=== PATIENT | male | born 1985 | race Caucasian/White ===

== ENCOUNTER → 2017-02-16 | Outpatient (CLI) | payer BC | LOC: COL.RAD 08:20 | DX: K21.9 Gastro-esophageal reflux disease without esophagitis (principal) ==

== ENCOUNTER 2021-08-05 07:34 | Day surgery (SDC) | payer BC ==
[~2021-08-05] VITALS: Ht 188 cm; Wt 92.6 kg
[2021-08-05] MEDS ORDERED: PRIL40 PO (07:51)
[2021-08-05] MEDS ORDERED: ZOLOFT 100MG100 MG PO (07:51)
[2021-08-05] MEDS ORDERED: VENTOLIN0.09 MG IH (07:51)
[2021-08-05 08:35] VITALS: BP 137/93; PULSE 84; TEMP 98.3
[2021-08-05 09:40] VITALS: BP 116/76; PULSE 75
--- NOTE | 2021-08-05 09:40 | NUR ---
Patient returns to [facility] [address] per cart and transfers to recliner. IV fluids infusing and patient denies nausea or difficulty swallowing. Drinking water. Call light in reach. Family at side.
[2021-08-05 09:55] VITALS: BP 116/82; PULSE 68
--- NOTE | 2021-08-05 09:55 | NUR ---
Dr. Lord in the room and talks with the patient. All questions answered.
[2021-08-05 10:10] VITALS: BP 118/91; PULSE 61
--- NOTE | 2021-08-05 10:10 | NUR ---
IV discontinued and site is free of redness or swelling. Patient dresses self.
--- NOTE | 2021-08-05 10:13 | NUR ---
Dismissal instructions given and voices understanding of these.
--- NOTE | 2021-08-05 10:15 | NUR ---
Dismissed to home driven by family member and taken to the front door per wheelchair and assisted into vehicle with dismissal instructions in hand.
== END 2021-08-05 10:15 | disposition home or self-care (01) ==
LOC: SDCO 07:34
DX: K22.2 Esophageal obstruction (principal); K21.00 Gastro-esophageal reflux disease with esophagitis, without bleeding; K29.50 Unspecified chronic gastritis without bleeding; K29.80 Duodenitis without bleeding; J45.909 Unspecified asthma, uncomplicated; F41.9 Anxiety disorder, unspecified; F32.A Depression, unspecified; Z79.899 Other long term (current) drug therapy
CPT/HCPCS: C1726; J2704; J3010; J7030

== ENCOUNTER 2022-09-22 06:10 | Day surgery (SDC) | payer BC ==
[~2022-09-22] VITALS: Ht 188 cm; Wt 92.2 kg
[~2022-09-22 06:10] MED LIST: PRIL40 PO; VENTOLIN0.09 MG IH; ZOLOFT 100MG100 MG PO
[2022-09-22 07:05] VITALS: BP 146/95; PULSE 85; TEMP 97.8
[2022-09-22 08:06] VITALS: BP 116/78; PULSE 81; TEMP 97.5
--- NOTE | 2022-09-22 08:06 | NUR ---
PATIENT AMBULATED TO CHAIR WITH STANDBY ASSISTANCE. PATIENT ALERT AND ORIENTED, DENIES PAIN AND NAUSEA. BREATHING REGULAR AND UNLABORED. SEE CHART FOR VITAL SIGNS. NURSE HANDOFF COMPLETED IN ROOM. AT 0810 PATIENT HAD WATER AND PUDDING, NO DYSPHAGIA. CALL LIGHT IN REACH.
[2022-09-22 08:15] VITALS: BP 108/80; PULSE 64
[2022-09-22 08:30] VITALS: BP 121/83; PULSE 74
--- NOTE | 2022-09-22 08:30 | NUR ---
PATIENT ALERT AND ORIENTED, DENIES PAIN AND NAUSEA. DR. HINSON MET WITH PATIENT AND FAMILY TO DISCUSS PROCEDURE. DISCHARGE EDUCATION COMPLETED WITH PRINTED EDUCATION SENT HOME WITH PATIENT. PATIENT AND PATIENT'S MOTHER VERBALIZED UNDERSTANDING OF TEACHING. IV REMOVED. PATIENT DISCHARGED HOME WITH MOTHER, HESHAM, TRANSPORT.
== END 2022-09-22 09:00 | disposition home or self-care (01) ==
LOC: SDCO 06:10
DX: K22.2 Esophageal obstruction (principal); K21.00 Gastro-esophageal reflux disease with esophagitis, without bleeding; K61.1 Rectal abscess; J45.909 Unspecified asthma, uncomplicated; I10 Essential (primary) hypertension
CPT/HCPCS: C1726; J2704; J7120